=== PATIENT | female | born 1985 | race Caucasian/White ===

== ENCOUNTER 2017-07-28 08:53 | Emergency (ER) | payer OTHER ==
[~2017-07-28] VITALS: Ht 170.2 cm; Wt 108.9 kg
--- NOTE | 2017-07-28 09:29 | Urgent Treatment Center Report ---
See Addendum History of Present Issue Date/Time Seen by Provider 07/28/17 0920 Visit Reason Pt arrived:Walked Presenting Problem:PT C/O RASH ON ABD AND BACK ALONG WITH DISCOMFORT WITH URINATION AND ODOROUS URINE Location if Accident: Onset of symptoms date/time:/ or onset unknown for:MEDICAL HX UNKNOWN Have you (or family members/close friends) recently traveled outside the [place]? N If Yes, where/when: Have you had exposure to infectious disease within the past month? TB? Other? Specify: Patient state that she noticed areas on her abdomen, back and upper left arm. States that areas itch and are now welpted and red, State that she had a place like this last week and she used some cream on it and it went away. States that she does not have any animals and unsure what may have bitten her in her sleep States that she thinks she may have a UTI also and wanted to be checked ALLERGIES Coded Allergies: No Known Allergies (07/28/17) History Medical History General CAD? No Angina: No [place]: No Hypertension? No Hyperlipidemia? No CHF? No DVT? No PE? No COPD? No Asthma? No Anemia? No GERD? No Gastric ulcers? No GI Bleed? No Hernia? No Thyroid Problems? No Hypothyroidism? No CVA? No Seizures? No Diabetes? No Renal Insuffiency? No UTI? No Stones? No BPH? No GB Disease: No Nephritic Syndrome? No Asplenia? No Hepatitis? No Sickle Cell Disease? No Arthritis? No Migraines? No Cataracts? No Glaucoma? No MRSA? No HIV? No TB? No Anxiety? No Depression? No Cancer? No More? No Immunization HX DT/Tetanus Unknown Surgical Hx Previous Surgery?N Social History Smoking Hx Smoker: Never Smoker Tobacco: No Alcohol Alcohol: No Review of Systems All Other Systems Reviewed and Negative Genitourinary frequency. Skin rash Physical Exam Vital Signs Vital Signs Date Time Temp Pulse Resp B/P Pulse O2 O2 Flow FiO2 Ox Delivery Rate 07/28 913 98.1 101 20 133/80 99 General Appearance normal appearance, WD/WN, no apparent distress Respiratory Status Yes: trachea midline, chest symmetrical, non tender chest. No: respiratory distress. Cardiovascular regular rate/rhythm Neurologic alert, normal exam, oriented x 3 Skin hives, Red hive like areas around waist band that occured last night in her sleep, Itchy and located on waistband, back on one on left upper arm Medical Decision Making LABS/Meds/Orders Pt receiving controlled substance in ED? No Results/Orders Laboratory Tests 07/28/17911: Urine Color YELLOW, Urine Appearance Clear, Urine pH 6.5, Ur Specific Lawrence 1.010, Urine Protein NEGATIVE, Urine Ketones NEGATIVE, Urine Blood TRACE H, Urine Nitrate NEGATIVE, Urine Bilirubin NEGATIVE, Urine Urobilinogen 0.2, Ur Leukocyte Esterase NEGATIVE, Urine Glucose NEGATIVE Current Medication Orders Sig/Anne Start time Last Medication Dose Route Stop Time Status Admin Diphenhydramine HCl 0 .STK-MED ONE 07/28 950 DC PO Prednisone 0 .STK-MED ONE 07/28 950 DC .ROUTE Diphenhydramine HCl 50 MG ONCE ONE 07/28 945 DC PO 07/28 946 Prednisone 20 MG ONCE ONE 07/28 945 DC PO 07/28 946 Orders Procedure Date/time Status [facility] URINE DIPSTICK 07/28 912 Complete Progress [facility] Progress Notes Comment Patient advised that she appeared to be having a reaction to bites on her abdomen and recommended SoluMedrol injection with Benadryl and patient refused State that she will take pills but will not take a shot Departure Departure Time of Disposition 09 Disposition [place] Home or Self Care(routine) Clinical Impression Primary Impression: Skin problem Condition STABLE Referrals [facility] If problem persists Patient Instructions DI for General Allergic Reactions Additional Instructions Take medication as prescribed, if problem continues to persist follow up with [facility] to be tested If you began to swell in your face or around your mouth or throat go straight to the ER Discharge Counseling Counseled pt/family regarding diagnosis, home care, follow up needs Prescriptions Current Visit Scripts Prednisone (Prednisone 10MG) 10 MG PO BID #10 TAB Diphenhydramine Hcl (Benadryl 50MG Cap) 50 MG PO Q4-6H PRN #20 CAP HYDROCORTISONE (TOPICAL) (Hydrocort 0.5% Oint 30 Gm.) 1 STEVEN TP BID #1 TUBE at 0988
[2017-07-28 09:38] LABS: URINE BILIRUBIN - DIPSTICK NEGATIVE (NEG); URINE BLOOD TRACE (NEG)
[2017-07-28 09:56] VITALS: BP 133/80
--- OUTSIDE RECORDS SUMMARY | 2017-08-04 02:27 | External Medical Summary Rpt | CCD ---
Author Author , JG GREGORIO Address Unknown Phone [email or web address] Purpose Continuity of Care Document - through 2016
--- OUTSIDE RECORDS SUMMARY | 2017-08-04 02:27 | External Medical Summary Rpt | CCD ---
Author Author [employer] Organization [employer] Address Unknown Phone Unavailable Purpose Continuity of Care Document - through 2016
--- OUTSIDE RECORDS SUMMARY | 2017-08-04 02:27 | External Medical Summary Rpt | CCD ---
Author Author , JG GREGORIO Address Unknown Phone [email or web address] Immunization Name Date Rout CVX Reac Dose Comm Prov Is Faci e tion ent ider Refu lity Give sed n Tdap 08-2 115 999 Hist [place] No [place] , 5-20 oric Adso 17 al rbed Info rmat ion - Sour ce Unsp ecif ied Vari 08-2 21 0.50 Hist KHAN No H149 cell 5-20 mL oric a 17 al APRI Info L rmat ion - Sour ce Unsp ecif ied MMR 09-2 3 999 Hist [place] No [place] 3-20 oric 16 al Info rmat ion - Sour ce Unsp ecif ied Tdap 09-2 Subc 115 999 Hist [place] No [place] , 3-20 utan oric Adso 16 eous al rbed Info rmat ion - Sour ce Unsp ecif ied Hep 09-2 43 999 Hist [place] No [place] B, 3-20 oric adul 16 al t Info rmat ion - Sour ce Unsp ecif ied
--- OUTSIDE RECORDS SUMMARY | 2017-08-04 02:27 | External Medical Summary Rpt | CCD ---
Author Author , JG GREGORIO Address Unknown Phone [email or web address] Purpose Continuity of Care Document - through 2016
--- OUTSIDE RECORDS SUMMARY | 2017-08-04 02:27 | External Medical Summary Rpt | CCD ---
Author Author , JG GREGORIO Address Unknown Phone [email or web address] Immunization Name Date Rout CVX Reac Dose Comm Prov Is Faci e tion ent ider Refu lity Give sed n Tdap 08-2 115 999 Hist [place] No [place] , 5-20 oric Adso 17 al rbed Info rmat ion - Sour ce Unsp ecif ied Vari 08-2 21 0.50 Hist KHAN No H149 cell 5-20 mL oric a 17 al APRI Info L rmat ion - Sour ce Unsp ecif ied MMR 09-2 3 999 Hist NV No NV 3-20 oric 16 al Info rmat ion - Sour ce Unsp ecif ied Tdap 09-2 Subc 115 999 Hist [place] No NV , 3-20 utan oric Adso 16 eous al rbed Info rmat ion - Sour ce Unsp ecif ied Hep 09-2 43 999 Hist [place] No [place] B, 3-20 oric adul 16 al t Info rmat ion - Sour ce Unsp ecif ied
== END 2017-07-28 09:57 | disposition home or self-care (01) ==
LOC: UTC 08:53
PROVIDERS: Nurse Practitioner
DX: L98.9 Disorder of the skin and subcutaneous tissue, unspecified (principal)

== ENCOUNTER 2017-10-02 15:47 | Emergency (ER) | payer OTHER ==
[~2017-10-02] VITALS: Ht 167.6 cm; Wt 111.1 kg
[~2017-10-02 15:47] MED LIST: BENADRYL 50MG C50 MG PO; HYDROCORT 0.5%30 G1 TP; PREDNISONE 10MG10 MG PO
--- OUTSIDE RECORDS SUMMARY | 2017-10-02 15:50 | External Medical Summary Rpt | CCD ---
Demographics Preferred Language Welsh Marital Status Unknown Synagogue Affiliation Unknown Race Unknown Ethnic Group Unknown Author Author , JG GREGORIO Address Unknown Phone Purpose Continuity of Care Document - through 2016
--- OUTSIDE RECORDS SUMMARY | 2017-10-02 15:50 | External Medical Summary Rpt | CCD ---
Demographics Preferred Language Wolof Marital Status Unknown Rastafarian Affiliation Unknown Race Unknown Ethnic Group Unknown Author Author , JG GREGORIO Address Unknown Phone Immunization No patient found.
--- OUTSIDE RECORDS SUMMARY | 2017-10-02 15:50 | External Medical Summary Rpt | CCD ---
Demographics Preferred Language Latvian Marital Status Unknown Mandaen Affiliation Unknown Race Unknown Ethnic Group Unknown Author Author , JG GREGORIO Address Unknown Phone Purpose Continuity of Care Document - through 2016
--- OUTSIDE RECORDS SUMMARY | 2017-10-02 15:50 | External Medical Summary Rpt | CCD ---
Demographics Preferred Language Mongolian Marital Status Unknown Buddhism Affiliation Unknown Race Unknown Ethnic Group Unknown Author Author , JG GREGORIO Address Unknown Phone Immunization No patient found.
[2017-10-02] MEDS ORDERED: REESE'S PIN144 MG/ML PO (17:06)
--- NOTE | 2017-10-02 17:07 | Urgent Treatment Center Report ---
History of Present Issue Date/Time Seen by Provider 10/02/17 6264 Visit Reason Pt arrived:Walked Presenting Problem:PT ADVISES THAT SHE HAS WORMS Location if Accident: Onset of symptoms date/time:/ or onset unknown for:MEDICAL HX UNKNOWN Have you (or family members/close friends) recently traveled outside the [place]? N If Yes, where/when: Have you had exposure to infectious disease within the past month? TB? Other? Specify: Here w/ daughter who has same symptoms. Pt reports "done my research" and decided both her and daughter have pinworms. Tried to get otc treatment but was told there wasn't any. Itchy anus, worse at night, thin white worms have been seen. Started one week ago. Sleep with daughter who has same symptoms x 3-4 days. No abdominal pain. Feels fine. Normal appetite with no vomiting or diarrhea Source patient Exam Limitations no limitations ALLERGIES Coded Allergies: No Known Allergies (07/28/17) Home Medications Active Scripts Prednisone (Prednisone 10MG) 10 MG PO BID #10 TAB Prov: 07/28/17 Diphenhydramine Hcl (Benadryl 50MG Cap) 50 MG PO Q4-6H PRN #20 CAP Prov: 07/28/17 HYDROCORTISONE (TOPICAL) (Hydrocort 0.5% Oint 30 Gm.) 1 STEVEN TP BID #1 TUBE Prov: 07/28/17 History Medical History General CAD? No Angina: No [place]: No Hypertension? No Hyperlipidemia? No CHF? No DVT? No PE? No COPD? No Asthma? No Anemia? No GERD? No Gastric ulcers? No GI Bleed? No Hernia? No Thyroid Problems? No Hypothyroidism? No CVA? No Seizures? No Diabetes? No Renal Insuffiency? No UTI? No Stones? No BPH? No GB Disease: No Nephritic Syndrome? No Asplenia? No Hepatitis? No Sickle Cell Disease? No Arthritis? No Migraines? No Cataracts? No Glaucoma? No MRSA? No HIV? No TB? No Anxiety? No Depression? No Cancer? No More? No Immunization HX DT/Tetanus Unknown Surgical Hx Previous Surgery?N Social History Smoking Hx Smoker: Never Smoker Tobacco: No Alcohol Alcohol: No Review of Systems All Other Systems Reviewed and Negative (as appropriate) Constitutional denies chills, denies fever, denies malaise Gastrointestinal see HPI Musculoskeletal denies joint pain Skin denies change in color, denies lesions, denies lumps, denies rash Psychiatric/Neurological denies headache Physical Exam Vital Signs Vital Signs Date Time Temp Pulse Resp B/P Pulse O2 O2 Flow FiO2 Ox Delivery Rate 10/02 1633 97.9 104 20 132/90 98 General Appearance normal appearance, no apparent distress Respiratory Status No: respiratory distress, productive cough, non productive cough. Cardiovascular no peripheral edema Gastrointestinal normal bowel sounds, non tender, soft Neurologic alert, oriented x 3 Skin normal color, warm/dry Medical Decision Making LABS/Meds/Orders Pt receiving controlled substance in ED? No Departure Departure Time of Disposition 1701 Disposition [place] Home or Self Care(routine) Clinical Impression Primary Impression: Pinworms Condition STABLE Referrals NO REFERRAL Follow up with primary care or return to [facility] if symptoms don't resolve with treatment of family and house. Patient Instructions DI for Pinworm Additional Instructions Read attached education Be sure to treat not only your family but your house as well Repeating treatment the second time is important Discharge Counseling Counseled pt/family regarding diagnosis, medications/RX, home care, follow up needs Prescriptions Current Visit Scripts Pyrantel Pamoate (Abdoul Pinworm) 20 ML PO DAILY #40 ML Take 20ml (1000mg) once now and repeat a second time in 2 weeks at 1717
--- NOTE | 2017-10-02 17:07 | Urgent Treatment Center Report ---
History of Present Issue Date/Time Seen by Provider 10/02/17 3462 Visit Reason Pt arrived:Walked Presenting Problem:PT ADVISES THAT SHE HAS WORMS Location if Accident: Onset of symptoms date/time:/ or onset unknown for:MEDICAL HX UNKNOWN Have you (or family members/close friends) recently traveled outside the [place]? N If Yes, where/when: Have you had exposure to infectious disease within the past month? TB? Other? Specify: Here w/ daughter who has same symptoms. Pt reports "done my research" and decided both her and daughter have pinworms. Tried to get otc treatment but was told there wasn't any. Itchy anus, worse at night, thin white worms have been seen. Started one week ago. Sleep with daughter who has same symptoms x 3-4 days. No abdominal pain. Feels fine. Normal appetite with no vomiting or diarrhea Source patient Exam Limitations no limitations ALLERGIES Coded Allergies: No Known Allergies (07/28/17) Home Medications Active Scripts Prednisone (Prednisone 10MG) 10 MG PO BID #10 TAB Prov: 07/28/17 Diphenhydramine Hcl (Benadryl 50MG Cap) 50 MG PO Q4-6H PRN #20 CAP Prov: 07/28/17 HYDROCORTISONE (TOPICAL) (Hydrocort 0.5% Oint 30 Gm.) 1 STEVEN TP BID #1 TUBE Prov: 07/28/17 History Medical History General CAD? No Angina: No [place]: No Hypertension? No Hyperlipidemia? No CHF? No DVT? No PE? No COPD? No Asthma? No Anemia? No GERD? No Gastric ulcers? No GI Bleed? No Hernia? No Thyroid Problems? No Hypothyroidism? No CVA? No Seizures? No Diabetes? No Renal Insuffiency? No UTI? No Stones? No BPH? No GB Disease: No Nephritic Syndrome? No Asplenia? No Hepatitis? No Sickle Cell Disease? No Arthritis? No Migraines? No Cataracts? No Glaucoma? No MRSA? No HIV? No TB? No Anxiety? No Depression? No Cancer? No More? No Immunization HX DT/Tetanus Unknown Surgical Hx Previous Surgery?N Social History Smoking Hx Smoker: Never Smoker Tobacco: No Alcohol Alcohol: No Review of Systems All Other Systems Reviewed and Negative (as appropriate) Constitutional denies chills, denies fever, denies malaise Gastrointestinal see HPI Musculoskeletal denies joint pain Skin denies change in color, denies lesions, denies lumps, denies rash Psychiatric/Neurological denies headache Physical Exam Vital Signs Vital Signs Date Time Temp Pulse Resp B/P Pulse O2 O2 Flow FiO2 Ox Delivery Rate 10/02 1633 97.9 104 20 132/90 98 General Appearance normal appearance, no apparent distress Respiratory Status No: respiratory distress, productive cough, non productive cough. Cardiovascular no peripheral edema Gastrointestinal normal bowel sounds, non tender, soft Neurologic alert, oriented x 3 Skin normal color, warm/dry Medical Decision Making LABS/Meds/Orders Pt receiving controlled substance in ED? No Departure Departure Time of Disposition 1701 Disposition [place] Home or Self Care(routine) Clinical Impression Primary Impression: Pinworms Condition STABLE Referrals NO REFERRAL Follow up with primary care or return to [facility] if symptoms don't resolve with treatment of family and house. Patient Instructions DI for Pinworm Additional Instructions Read attached education Be sure to treat not only your family but your house as well Repeating treatment the second time is important Discharge Counseling Counseled pt/family regarding diagnosis, medications/RX, home care, follow up needs Prescriptions Current Visit Scripts Pyrantel Pamoate (Abdoul Pinworm) 20 ML PO DAILY #40 ML Take 20ml (1000mg) once now and repeat a second time in 2 weeks at 1718
[2017-10-02 17:14] VITALS: BP 132/90
== END 2017-10-02 17:14 | disposition home or self-care (01) ==
LOC: UTC 15:47
DX: B80 Enterobiasis (principal)